=== PATIENT | male | born 1985 | race Caucasian/White ===

== ENCOUNTER 2019-05-14 13:42 | Emergency (ER) | payer OTHER ==
[~2019-05-14] VITALS: Ht 177.8 cm; Wt 77.1 kg
[~2019-05-14 13:42] MED LIST: ANTOXYBENA LEFTEAR; CEPH500 PO; CYCL10 PO; DOXY100 PO; HYDACE25S PR; HYDACE5 PO; IBUP600 PO; IBUP800 PO; MARIJUANA; MUPI2TO TOP; NAPR500 PO; NEOPOLHYDS OT; OLAN5; ONDA4 PO; PENVK500 PO; PHENA200 PO; PRED10 PO; PROM25 PO; RANI150 PO; RXCLIN PO; RXPENVK250 PO; RXTRAM50 PO; TRAACE PO; TRAM50 PO; Ultram50 MG PO; [UNRECOGNIZED DRUG - CODE] PO
[2019-05-14] MEDS ORDERED: PRED10 PO (14:05)
[2019-05-14] MEDS ORDERED: Permethrin60 GM TOP (14:05)
[2019-05-14] MEDS ORDERED: HYDR10 PO (14:07)
== END 2019-05-14 14:08 | disposition home or self-care (01) ==
LOC: ER 13:42
DX: S80.862A Insect bite (nonvenomous), left lower leg, initial encounter (principal); S80.861A Insect bite (nonvenomous), right lower leg, initial encounter; S40.862A Insect bite (nonvenomous) of left upper arm, initial encounter; S40.861A Insect bite (nonvenomous) of right upper arm, initial encounter; R21 Rash and other nonspecific skin eruption; W57.XXXA Bitten or stung by nonvenomous insect and other nonvenomous arthropods, initial encounter; Z91.018 Allergy to other foods; Z79.899 Other long term (current) drug therapy; Z79.52 Long term (current) use of systemic steroids; F17.200 Nicotine dependence, unspecified, uncomplicated
CPT/HCPCS: 99282

== ENCOUNTER 2019-05-19 20:41 | Emergency (ER) | payer OTHER ==
[~2019-05-19] VITALS: Ht 177.8 cm; Wt 81.7 kg
[~2019-05-19 20:41] MED LIST changes: +HYDR10 PO; +Monodox100 MG PO; +Permethrin60 GM TOP
[2019-05-19 21:42] LABS: BASOPHILS ABSOLUTE AUTO 0.04 K/mm3 (0.00-0.23); BASOPHILS PERCENT AUTO 0 % (0-2); EOSINOPHILS ABSOLUTE AUTO 0.28 K/mm3 (0.00-0.68); EOSINOPHILS PERCENT AUTO 2 % (0-6); Hematocrit 42.2 % (37.0-53.0); Hemoglobin 13.7 g/dL (13.5-17.5); IMMATURE GRAN ABSOLUTE AUTO 0.07 K/mm3 (0.00-0.10); IMMATURE GRAN PERCENT AUTO 1 % (0-1); LYMPHOCYTES ABSOLUTE AUTO 2.51 K/mm3 (0.84-5.20); LYMPHOCYTES PERCENT AUTO 18 % (21-46); MONOCYTES ABSOLUTE AUTO 1.29 K/mm3 (0.16-1.47); MONOCYTES PERCENT AUTO 9 % (4-13); Mean Corpuscular HGB 27.5 pg (26.0-34.0); Mean Corpuscular HGB Conc 32.5 g/dL (31.5-36.5); Mean Corpuscular Volume 85 fL (80-100); Mean Platelet Volume 10.2 fL (9.1-12.4); NEUTROPHILS ABSOLUTE AUTO 9.98 K/mm3 (1.96-9.15); NEUTROPHILS PERCENT AUTO 70 % (41-73); Platelet Count 254 K/mm3 (150-400); RDW Coefficient Variation 13.2 % (11.7-14.2); RDW Standard Deviation 40.7 fL (35.1-46.3); Red Blood Cell Count 4.99 M/mm3 (4.30-5.90); White Blood Cell Count 14.17 K/mm3 (4.00-11.30)
[2019-05-19 21:57] LABS: Anion Gap 7 mmol/L (6-16); Blood Urea Nitrogen 16 mg/dL (8-24); Bun/Creatinine Ratio 15.7 (12.0-20.0); CO2, Blood 27 mmol/L (21-32); Calcium, Blood 8.3 mg/dL (8.5-10.1); Chloride, Blood 106 mmol/L (98-108); Creatinine, Blood 1.02 mg/dL (0.60-1.20); Glomerular Filtration Rate >60 (60-); Glucose, Blood 150 mg/dL (70-99); Potassium, Blood 3.4 mmol/L (3.5-5.5); Sodium, Blood 140 mmol/L (136-145)
[2019-05-20] MEDS ORDERED: VANCOMYCIN HCL1.5 GM IV (17:48)
== END 2019-05-20 01:00 | disposition home or self-care (01) ==
LOC: ER 20:41
PROVIDERS: Physician Assistant
DX: A41.9 Sepsis, unspecified organism (principal); L03.116 Cellulitis of left lower limb; F17.200 Nicotine dependence, unspecified, uncomplicated; D72.829 Elevated white blood cell count, unspecified; Z88.0 Allergy status to penicillin; Z79.899 Other long term (current) drug therapy
CPT/HCPCS: 36415; 73701; 80048; 83605; 85025; 96365-59; 96366; 96367; 96375-59; 99284-25; J0696; J1885; J3370; J7050; Q9967

== ENCOUNTER 2019-05-20 06:54 | Emergency (ER) | payer OTHER ==
[~2019-05-20] VITALS: Ht 177.8 cm; Wt 81.7 kg
[2019-05-20] MEDS ORDERED: VANCOMYCIN HCL1.5 GM IV (17:48)
== END 2019-05-20 09:40 | disposition home or self-care (01) ==
LOC: ER 06:54
DX: L03.116 Cellulitis of left lower limb (principal); F17.210 Nicotine dependence, cigarettes, uncomplicated; Z88.0 Allergy status to penicillin
CPT/HCPCS: 96365; 96366; 96367; J0696; J3370; J7050

== ENCOUNTER 2019-05-20 08:18 | Day surgery (SDC) | payer OTHER ==
[~2019-05-20] VITALS: Ht 177.8 cm; Wt 77.0 kg
[2019-05-20] MEDS ORDERED: VANCOMYCIN HCL1.5 GM IV (17:48)
== END 2019-05-20 17:42 | disposition home or self-care (01) ==
LOC: ATC 08:18
DX: L03.116 Cellulitis of left lower limb (principal); F17.210 Nicotine dependence, cigarettes, uncomplicated; M41.20 Other idiopathic scoliosis, site unspecified; F90.9 Attention-deficit hyperactivity disorder, unspecified type; F31.9 Bipolar disorder, unspecified; F20.9 Schizophrenia, unspecified; J45.20 Mild intermittent asthma, uncomplicated; R63.4 Abnormal weight loss; G89.29 Other chronic pain; Z88.0 Allergy status to penicillin; Z91.018 Allergy to other foods; Z79.52 Long term (current) use of systemic steroids; Z79.899 Other long term (current) drug therapy
CPT/HCPCS: 96365; J3370; J7050

== ENCOUNTER 2019-05-21 00:12 | Day surgery (SDC) | payer OTHER ==
[~2019-05-21 00:12] MED LIST changes: +VANCOMYCIN HCL1.5 GM IV
== END 2019-05-21 23:04 | disposition home or self-care (01) ==
LOC: ATC 00:12
DX: L03.116 Cellulitis of left lower limb (principal); F17.210 Nicotine dependence, cigarettes, uncomplicated; M41.20 Other idiopathic scoliosis, site unspecified; F90.9 Attention-deficit hyperactivity disorder, unspecified type; F31.9 Bipolar disorder, unspecified; F20.9 Schizophrenia, unspecified; J45.909 Unspecified asthma, uncomplicated; G89.29 Other chronic pain; Z88.0 Allergy status to penicillin; Z91.018 Allergy to other foods; Z79.52 Long term (current) use of systemic steroids; Z79.899 Other long term (current) drug therapy
CPT/HCPCS: J0696; J3370; J7050

== ENCOUNTER 2019-05-23 00:54 | Day surgery (SDC) | payer OTHER ==
[2019-05-23] MEDS ORDERED: Rocephin 1g1 G/50 ML IV (08:26)
== END 2019-05-23 17:18 | disposition home or self-care (01) ==
LOC: ATC 00:54
DX: L03.116 Cellulitis of left lower limb (principal); F17.210 Nicotine dependence, cigarettes, uncomplicated; Z88.0 Allergy status to penicillin
CPT/HCPCS: J0696; J3370; J7050

== ENCOUNTER 2019-05-24 00:20 | Day surgery (SDC) | payer OTHER ==
[~2019-05-24 00:20] MED LIST changes: +Rocephin 1g1 G/50 ML IV
--- NOTE | 2019-05-24 08:20 | NUR ---
PT HAS NOT ARRIVED FOR 07 SCHEDULED APPOINTMENT. CALLED NUMBER ON FILE AND NO ANSWER.
--- NOTE | 2019-05-24 11:44 | NUR ---
SPOKE WITH BOB IN PHARMACY. INFORMED BOB THAT PT WAS A NO SHOW THIS MORNING AND I WOULD DO LABS PRIOR TO HIS DOSE THIS EVENING. SHE SAID CANCEL THE LAB ORDERS. PT HAS NOT BEEN ABLE TO COME TO HIS APPOINTMENTS AND THEY CANNOT GET HIM THERAPEUTIC WITH HIM ROUTINELY NO SHOWING. PT IS AT HIGH RISK FOR DEVELOPING RESISTANCE DUE TO THIS. PT NEEDS TO BE REFERRED BACK TO THE ER FOR A DIFFERENT TREATMENT PLAN BUT THAT I COULD STILL GIVE THE ROCEPHIN.
--- NOTE | 2019-05-24 17:08 | NUR ---
PT WAS SCHEDULED FOR 1600 APPOINTMENT AND PT HAS NOT ARRIVED.
== END 2019-05-24 22:40 | disposition home or self-care (01) ==
LOC: ATC 00:20
DX: L03.116 Cellulitis of left lower limb (principal); F17.210 Nicotine dependence, cigarettes, uncomplicated; J45.20 Mild intermittent asthma, uncomplicated; F32.9 Major depressive disorder, single episode, unspecified; Z88.0 Allergy status to penicillin; Z91.018 Allergy to other foods
CPT/HCPCS: J0696

== ENCOUNTER 2019-11-14 23:35 | Emergency (ER) | payer SELFPAY ==
[~2019-11-14] VITALS: Ht 177.8 cm; Wt 81.7 kg
[~2019-11-14 23:35] MED LIST changes: +COMPAZINE10 MG PO; +Norco 5-325 Ta1 EACH PO; +QUET100 PO; +QUET25 PO; +Tamiflu75 MG PO
== END 2019-11-15 00:18 | disposition home or self-care (01) ==
LOC: ER 23:35
DX: R07.89 Other chest pain (principal); F17.210 Nicotine dependence, cigarettes, uncomplicated
CPT/HCPCS: 99282

== ENCOUNTER → 2021-08-28 | Outpatient (CLI) | payer OTHER ==
[2021-08-28 14:53] LABS: BASOPHILS ABSOLUTE AUTO 0.03 K/mm3 (0.00-0.23); BASOPHILS PERCENT AUTO 1 % (0-2); EOSINOPHILS ABSOLUTE AUTO 0.02 K/mm3 (0.00-0.68); EOSINOPHILS PERCENT AUTO 0 % (0-6); Hematocrit 40.4 % (37.0-53.0); Hemoglobin 13.5 g/dL (13.5-17.5); IMMATURE GRAN ABSOLUTE AUTO 0.04 K/mm3 (0.00-0.10); IMMATURE GRAN PERCENT AUTO 1 % (0-1); LYMPHOCYTES ABSOLUTE AUTO 0.52 K/mm3 (0.84-5.20); LYMPHOCYTES PERCENT AUTO 8 % (21-46); MONOCYTES ABSOLUTE AUTO 1.32 K/mm3 (0.16-1.47); MONOCYTES PERCENT AUTO 20 % (4-13); Mean Corpuscular HGB 28.1 pg (26.0-34.0); Mean Corpuscular HGB Conc 33.4 g/dL (31.5-36.5); Mean Corpuscular Volume 84 fL (80-100); Mean Platelet Volume 10.5 fL (9.1-12.4); NEUTROPHILS ABSOLUTE AUTO 4.71 K/mm3 (1.96-9.15); NEUTROPHILS PERCENT AUTO 71 % (41-73); Platelet Count 192 K/mm3 (150-400); RDW Coefficient Variation 14.1 % (11.7-14.2); RDW Standard Deviation 43.3 fL (35.1-46.3); White Blood Cell Count 6.64 K/mm3 (4.00-11.30)
== END ==
LOC: LAB SHORT 14:46
PROVIDERS: Physician Assistant
DX: R10.9 Unspecified abdominal pain (principal)
CPT/HCPCS: 85025

== ENCOUNTER 2021-12-22 17:44 | Emergency (ER) | payer OTHER ==
[~2021-12-22] VITALS: Ht 177.8 cm; Wt 71.2 kg
[2021-12-22 20:05] LABS: BASOPHILS ABSOLUTE AUTO 0.04 K/mm3 (0.00-0.23); BASOPHILS PERCENT AUTO 0 % (0-2); EOSINOPHILS ABSOLUTE AUTO 0.22 K/mm3 (0.00-0.68); EOSINOPHILS PERCENT AUTO 3 % (0-6); Hematocrit 48.2 % (37.0-53.0); Hemoglobin 16.4 g/dL (13.5-17.5); IMMATURE GRAN ABSOLUTE AUTO 0.03 K/mm3 (0.00-0.10); IMMATURE GRAN PERCENT AUTO 0 % (0-1); LYMPHOCYTES ABSOLUTE AUTO 2.87 K/mm3 (0.84-5.20); LYMPHOCYTES PERCENT AUTO 32 % (21-46); MONOCYTES ABSOLUTE AUTO 0.94 K/mm3 (0.16-1.47); MONOCYTES PERCENT AUTO 11 % (4-13); Mean Corpuscular HGB 28.5 pg (26.0-34.0); Mean Corpuscular Volume 84 fL (80-100); Mean Platelet Volume 11.1 fL (9.1-12.4); NEUTROPHILS ABSOLUTE AUTO 4.85 K/mm3 (1.96-9.15); NEUTROPHILS PERCENT AUTO 54 % (41-73); Platelet Count 252 K/mm3 (150-400); RDW Coefficient Variation 13.7 % (11.7-14.2); RDW Standard Deviation 41.9 fL (35.1-46.3); Red Blood Cell Count 5.76 M/mm3 (4.30-5.90); White Blood Cell Count 8.95 K/mm3 (4.00-11.30)
[2021-12-22 20:21] LABS: Albumin, Blood 4.7 g/dL (3.4-5.0); Albumin/Globulin Ratio 1.3 (0.8-1.8); Bilirubin, Total 1.5 mg/dL (0.1-1.0); Bun/Creatinine Ratio 13.9 (12.0-20.0); Calcium, Blood 9.7 mg/dL (8.5-10.1); Creatinine, Blood 1.22 mg/dL (0.60-1.20); Globulin, Blood 3.7 g/dL (2.2-4.0); Potassium, Blood 3.6 mmol/L (3.5-5.5); Total Protein, Blood 8.4 g/dL (6.4-8.2)
== END 2021-12-22 20:49 | disposition left against medical advice (07) ==
LOC: ER 17:44
PROVIDERS: Emergency Medicine
DX: R10.13 Epigastric pain (principal); R10.11 Right upper quadrant pain; R11.2 Nausea with vomiting, unspecified; F17.210 Nicotine dependence, cigarettes, uncomplicated; Z88.0 Allergy status to penicillin; Z53.29 Procedure and treatment not carried out because of patient's decision for other reasons
CPT/HCPCS: 36415; 76705; 80053; 83690; 85025; 99284-25; J7030